=== PATIENT | male | born 1975 | race Caucasian/White ===

== ENCOUNTER → 2020-01-17 09:41 | Outpatient (BNVA) | payer OTHER, SELFPAY | PROVIDERS: Visit Provider Registered Nurse | DX: Z11.59 Encounter for screening for other viral diseases (principal) | CPT/HCPCS: 87635 ==

== ENCOUNTER → 2020-01-30 09:44 | Outpatient (BNVA) | payer OTHER, SELFPAY | PROVIDERS: Visit Provider Registered Nurse | DX: Z11.59 Encounter for screening for other viral diseases (principal) | CPT/HCPCS: 87635 ==

== ENCOUNTER → 2020-02-06 09:28 | Outpatient (BNVA) | payer OTHER, SELFPAY | PROVIDERS: Visit Provider Registered Nurse | DX: Z20.828 Contact with and (suspected) exposure to other viral communicable diseases (principal) | CPT/HCPCS: 87635 ==

== ENCOUNTER → 2020-02-13 10:14 | Outpatient (BNVA) | payer OTHER, SELFPAY | PROVIDERS: Visit Provider Registered Nurse | DX: Z20.828 Contact with and (suspected) exposure to other viral communicable diseases (principal) | CPT/HCPCS: 87635 ==

== ENCOUNTER → 2020-02-20 11:49 | Outpatient (BNVA) | payer OTHER, SELFPAY | PROVIDERS: Visit Provider Registered Nurse | DX: Z20.828 Contact with and (suspected) exposure to other viral communicable diseases (principal) | CPT/HCPCS: 87635 ==

== ENCOUNTER 2020-10-17 16:28 | Emergency (ER) | payer OTHER, SELFPAY ==
[2020-10-17 17:16] VITALS: BP 149/99; PULSE 83; RESP 18; TEMP 37.6; O2SAT 97; BMI 43.5
--- NOTE | 2020-10-17 17:31 | ED_ITS ---
HPI - Extremity Problem General: Chief complaint: Extremity Problem,Nontraumatic Stated complaint: Numbness in Fingers/Slight Chest Pressure Time Seen by Provider: 10/17/20 17:31 History of Present Illness: HPI Narrative: 44-year-old male patient comes in today with complaints of numbness and tingling in the hands and feet, lightheadedness, nausea, and some midsternal chest discomfort. Patient reports 1 week ago he did had a head injury which a heavy laptop hit him on top of the head which caused him to feel faint, and some persistent nausea for a day or 2. Today patient started having some return of his nausea and tingling in the hands and feet. Patient at first thought it was more likely due to anxiety which since having COVID-19 in the early winter has had more anxiety. Patient appears well. Patient takes no routine medication. Patient does admit he is obese. Patient does not routinely see physicians. Patient reports symptoms have alleviated since coming to the emergency room but does continue to have some tightness in his chest. Associated symptoms: Reports chest pain Review of Systems General: Reports: 10 or more systems reviewed and unremarkable except in HPI and below Card: Reports: chest pain Neuro: Reports: numbness in extremities Physical Exam Const: COMMON NORMALS: no acute distress, patient oriented x3 and alert GENERAL APPEARANCE: cooperative HENMT: COMMON NORMALS: normocephalic and Normal external nose present HEAD & SCALP: normal to inspection and normocephalic NOSE: Normal external nose present MOUTH: Normal oral and palatal mucosa present Eye: GENERAL EYE: appearance normal, both eyes and all related structures Neck/C-Spine: COMMON NORMALS: full ROM Lymph: LYMPHATIC: no lymphadenopathy noted Chest: COMMONS NORMALS: normal inspection of the chest Resp: COMMON NORMALS: normal respiratory effort EFFORT & INSPECTION: Yes able to speak in complete sentences Cardio: COMMON NORMALS: regular rate and regular rhythm RATE: regular rate RHYTHM: regular rhythm GI: COMMON NORMALS: non-tender : COMMON NORMALS: Yes no CVA tenderness BLADDER/KIDNEY EXAM: Yes no CVA tenderness Back/Pelvis: COMMON NORMALS: no CVA tenderness and thoracic and lumbar spine normal to inspection Extremity: COMMON NORMALS: normal to inspection Neuro: RICHARD COMA SCALE: document GCS findings Richard coma scale eye openin g: Spontaneous [place] coma scale verbal response: Orientated [place] coma scale motor response: Obey commands Richard coma scale total score: 15 COMMON NORMALS: patient oriented x3 and moves all extremities SENSORIUM/ORIENTATION: Yes alert OTHER: NIHS-0 Psych: COMMON NORMALS: mental status grossly normal and cooperative Skin: COMMON NORMALS: no rashes or lesions noted GENERAL SKIN EXAM: no rashes or lesions noted Course Vital Signs: Vital signs: Vital Signs Temperature 99.6 F 10/17/20 17:16 Pulse Rate 83 10/17/20 17:16 Respiratory Rate 18 10/17/20 17:16 Blood Pressure 149/99 10/17/20 17:16 Pulse Oximetry 97 10/17/20 17:16 MDM - Extremity (Nontraumatic) MDM Narrative: Medical decision making narrative: Patient came in today with several abnormal symptoms. Patient reported tingling in his extremities some chest pressure and head injury from 1 week ago. Patient reports after the head injury he has had more the symptoms. Patient does admit that he has some anxiety problems to. On exam patient appears well. Lungs are clear to auscultation. Skin is warm and dry. Abdomen soft nontender. Patient is a obese man. Patient's blood pressure was slightly elevated at 149/99. EKG showed some left ventricular hypertrophy but otherwise was normal. Differential diagnosis includes but not limited to a minor concussion, anxiety, hypertension, ACS. Laboratory values showed no elevation in troponin, CBC and CMP were unremarkable. Urinalysis was contaminated. CT of the head showed no intracranial bleeding. Patient was given 1 mg Ativan for his chest discomfort. Patient had improvement in symptoms throughout stay. Reviewed exam with patient with recommendations for treatment and follow-up. Encouraged management of blood pressure and establishing care with a primary care provider. Patient stated understanding and agreed to plan with need for follow-up. Lab Data: Labs: Lab Results 10/17/20 10/17/20 10/17/20 Range/Units 18:25 18:27 18:27 WBC 10.6 H (4.0-10.0) 10^3/ uL RBC 5.42 H (4.1-5.3) 10^6/u L Hgb 15.2 (11.7-16.6) g/dL Hct 45.5 (42.0-52.0) % MCV 83.9 (80-94) fL MCH 28.0 (28.0-34.0) pg MCHC 33.4 (30.0-36.0) g/dL RDW 12.9 (12.1-15.1) % Plt Count 376 (130-400) 10^3/c mm MPV 9.5 (7.4-10.4) fL Neut % (Auto) 70.7 % Lymph % (Auto) 19.7 % [place] % (Auto) 6.9 % Eos % (Auto) 2.1 % Baso % (Auto) 0.3 % Neut # (Auto) 7.48 (1.8-7.7) 10^3/u L Lymph # (Auto) 2.1 (0.8-4.8) 10^3/u L [place] # (Auto) 0.7 (0.2-0.9) 10^3/u L Eos # (Auto) 0.2 (0.0-0.8) 10^3/u L Baso # (Auto) 0.0 (0.0-0.1) 10^3/u L Nucleated RBC % (a uto) 0 % Nucleated RBCs # 0.0 /100WBC Sodium 140 (136-145) mmol/L Potassium 4.0 (3.5-5.1) mmol/L Chloride 103 (98-107) mmol/L Carbon Dioxide 26 (22-29) mmol/L Anion Gap 15.0 (5-19) BUN 11 (6-20) mg/dL Creatinine 1.0 (0.7-1.2) mg/dL GFR Calculation 81.6 L (90-130) mL/min Glucose 97 (65-115) mg/dL Calculated Osmolal ity 289 (285-295) mOsm/k g Calcium 8.9 (8.5-10.5) mg/dL Total Bilirubin 0.7 (0.15-1.2) mg/dL AST 21 (0-40) U/L ALT 35 (0-41) U/L Alkaline Phosphata se 70 (40-130) IU/L Creatine Kinase 167 (39-308) U/L Troponin T Gen 5 n g/L (0-15) ng/L C-Reactive Protein 10.1 H (0.0-4.9) mg/L Total Protein 7.2 (6.6-8.7) g/dL Albumin 4.5 (3.5-5.2) g/dL Globulin 2.7 (1.3-4.6) g/dL Urine Color Yellow (Yellow) Urine Appearance Sl hazy (CLEAR) Urine pH 5 (5-7) Ur Specific Gravit y 1.005 (1.005-1.030) Urine Protein Neg (Negative) Urine Glucose (UA) Norm (Normal) Urine Ketones Negative (Negative) Urine Blood Neg (Negative) Urine Nitrate Negative (Negative) Urine Bilirubin Neg (Negative) Urine Urobilinogen Norm (Negative) mg/dL Ur Leukocyte Yuridia ase 1+ H (Negative) Urine RBC None (0-2) /hpf Urine WBC 5-10 H (0-5) /hpf Ur Squamous Epith Cells 5-10 H (0-5) /hpf Amorphous Sediment Not Reportable Urine Bacteria Trace (NONE) /hpf 10/17/20 Range/Units 18:27 WBC (4.0-10.0) 10^3/ uL RBC (4.1-5.3) 10^6/u L Hgb (11.7-16.6) g/dL Hct (42.0-52.0) % MCV (80-94) fL MCH (28.0-34.0) pg MCHC (30.0-36.0) g/dL RDW (12.1-15.1) % Plt Count (130-400) 10^3/c mm MPV (7.4-10.4) fL Neut % (Auto) % Lymph % (Auto) % [place] % (Auto) % Eos % (Auto) % Baso % (Auto) % Neut # (Auto) (1.8-7.7) 10^3/u L Lymph # (Auto) (0.8-4.8) 10^3/u L [place] # (Auto) (0.2-0.9) 10^3/u L Eos # (Auto) (0.0-0.8) 10^3/u L Baso # (Auto) (0.0-0.1) 10^3/u L Nucleated RBC % (a uto) % Nucleated RBCs # /100WBC Sodium (136-145) mmol/L Potassium (3.5-5.1) mmol/L Chloride (98-107) mmol/L Carbon Dioxide (22-29) mmol/L Anion Gap (5-19) BUN (6-20) mg/dL Creatinine (0.7-1.2) mg/dL GFR Calculation (90-130) mL/min Glucose (65-115) mg/dL Calculated Osmolal ity (285-295) mOsm/k g Calcium (8.5-10.5) mg/dL Total Bilirubin (0.15-1.2) mg/dL AST (0-40) U/L ALT (0-41) U/L Alkaline Phosphata se (40-130) IU/L Creatine Kinase (39-308) U/L Troponin T Gen 5 n g/L 6 (0-15) ng/L C-Reactive Protein (0.0-4.9) mg/L Total Protein (6.6-8.7) g/dL Albumin (3.5-5.2) g/dL Globulin (1.3-4.6) g/dL Urine Color (Yellow) Urine Appearance (CLEAR) Urine pH (5-7) Ur Specific Gravit y (1.005-1.030) Urine Protein (Negative) Urine Glucose (UA) (Normal) Urine Ketones (Negative) Urine Blood (Negative) Urine Nitrate (Negative) Urine Bilirubin (Negative) Urine Urobilinogen (Negative) mg/dL Ur Leukocyte Yuridia ase (Negative) Urine RBC (0-2) /hpf Urine WBC (0-5) /hpf Ur Squamous Epith Cells (0-5) /hpf Amorphous Sediment Urine Bacteria (NONE) /hpf EKG Data^: EKG 1: Attestation: I personally reviewed and interpreted this EKG as follows: (1800, EKG shows a sinus rhythm with a regular rate at 83 bpm, no ectopy or ST elevation is noted, some left ventricular hypertrophy is noted. No prior exam is available for comparison at this time.) Discharge Plan Discharge Patient Disposition: Home Clinical Impression: Anxiety, Elevated blood pressure reading Minor head injury without loss of consciousness Qualifiers: Encounter type: initial encounter Qualified Code(s): S09.90XA - Unspecified injury of head, initial encounter Condition: Stable Prescriptions: No Action No Known Home Medications RF: 0 Discharge Orders: Discharge ED (Routine); Ordered 10/17/20 Ordered By: Troy Kent Discharge Diet: Usual diet Discharge Activity: Increase activity as tolerated Patient Instructions: DASH Eating Plan (ED), Hypertension (ED), Opioid Safety Activity Restrictions/Additional Instructions: Healthy diet and exercise. Drink plenty of water. Follow-up with primary care for recheck on blood pressure. Consider the DASH diet plan for assistance with lowering your blood pressure. Return to the emergency department for new concerns or worsening symptoms. Coding Level of Care Code ED Insole Beveler for Wisam Howe Exam Comprehensive
--- NOTE | 2020-10-17 17:32 | ECG_ITS ---
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 Measurements Intervals [place] Rate: 83 P: 6 SD: 120 QRS: -31 QRSD: 97 T: 29 QT: 351 QTc: 414 Interpretive Statements SINUS RHYTHM MARKED LEFT AXIS DEVIATION [QRS AXIS < -30] PATTERN CONSISTENT WITH PULMONARY DISEASE MINIMAL VOLTAGE CRITERIA FOR LVH, CONSIDER NORMAL VARIANT [MEETS CRITERIA IN ONE OF: R(aVL), S(V1), R(V5), R(V5/V6)+S(V1)] No previous ECG available for comparison Electronically Signed On 10-18-2020 14:53:28 CDT by Keira Ortiz M.D. [email or web address]
--- NOTE | 2020-10-17 18:09 | CTR_ITS ---
PROCEDURE INFORMATION: Exam: CT Head Without Contrast Exam date and time: 10/17/2020 6:09 PM Age: 44 years old Clinical indication: Injury or trauma; Other: Dropped laptop on head; Blunt trauma (contusions or hematomas); Injury details: Dropped 5lb laptop on head x 1 week ago. Has been feeling foggy, dizzy, and tingling in fingers. ; Prior surgery; Surgery type: Ears, nose, throat; Additional info: Head injury one week, persistent dizziness/nausea TECHNIQUE: Imaging protocol: Computed tomography of the head without contrast. Radiation optimization: All CT scans at this facility use at least one of these dose optimization techniques: automated exposure control; mA and/or kV adjustment per patient size (includes targeted exams where dose is matched to clinical indication); or iterative reconstruction. COMPARISON: No relevant prior studies available. RADIATION DOSE METRICS: Total DLP (mGy-cm): 1016.57 FINDINGS: Brain: Normal. No hemorrhage. Unremarkable white matter. No mass effect. Cerebral ventricles: No ventriculomegaly. Paranasal sinuses: Visualized sinuses are unremarkable. No fluid levels. Mastoid air cells: Visualized mastoid air cells are well aerated. Bones/joints: Unremarkable. No acute fracture. Soft tissues: Unremarkable. CT/CT head wo con* [id number] IMPRESSION: No acute intracranial abnormality. Radiation Dose CTDIVOL = (mGy): DLP = 1016.57 (mGy-cm)
[2020-10-17 18:31] LABS: Basophils % 0.3 %; Eosinophils # 0.2 10^3/uL (0.0-0.8); Eosinophils % 2.1 %; Hematocrit 45.5 % (42.0-52.0); Hemoglobin 15.2 g/dL (11.7-16.6); Lymphocytes # 2.1 10^3/uL (0.8-4.8); Lymphocytes % 19.7 %; Mean Corpuscular HGB Conc 33.4 g/dL (30.0-36.0); Mean Corpuscular Volume 83.9 fL (80-94); Mean Platelet Volume 9.5 fL (7.4-10.4); Monocytes # 0.7 10^3/uL (0.2-0.9); Monocytes % 6.9 %; Neutrophils # 7.48 10^3/uL (1.8-7.7); Neutrophils % 70.7 %; Nucleated Red Blood Cells % 0 %; Platelet Count 376 10^3/cmm (130-400); Red Blood Count 5.42 10^6/uL (4.1-5.3); Red Cell Distribution Width 12.9 % (12.1-15.1); White Blood Count 10.6 10^3/uL (4.0-10.0)
[2020-10-17] MEDS: LORazepam 1 mg Tablet PO (18:31)
[2020-10-17 18:49] LABS: Troponin T (5th) Once 6 ng/L (0-15)
[2020-10-17 18:50] LABS: Alanine Aminotransferase 35 U/L (0-41); Albumin Level 4.5 g/dL (3.5-5.2); Alkaline Phosphatase 70 IU/L (40-130); Aspartate Amino Transferase 21 U/L (0-40); Blood Urea Nitrogen 11 mg/dL (6-20); C Reactive Protein 10.1 mg/L (0.0-4.9); Calcium 8.9 mg/dL (8.5-10.5); Carbon Dioxide 26 mmol/L (22-29); Chloride 103 mmol/L (98-107); Creatine Phosphokinase 167 U/L (39-308); Globulin 2.7 g/dL (1.3-4.6); Glomerular Filtration Rate 81.6 mL/min (90-130); Glucose 97 mg/dL (65-115); Osmolality Calculated 289 mOsm/kg (285-295); Sodium 140 mmol/L (136-145); Total Bilirubin 0.7 mg/dL (0.15-1.2); Total Protein 7.2 g/dL (6.6-8.7)
[2020-10-17 19:02] LABS: Add Urine Microscopic? YES; Bilirubin Urine Neg (Negative); Blood Urine Neg (Negative); Glucose Urine UA Norm (Normal); Ketones Urine Negative (Negative); Leukocyte Esterase Urine 1+ (Negative); Nitrate Urine Negative (Negative); Protein Urine Neg (Negative); Specific Gravity, Urine 1.005 (1.005-1.030); Urine Appearance SL Hazy (CLEAR); Urine Color Yellow (Yellow); Urobilinogen Urine Norm (Negative); pH Urine 5 (5-7)
[2020-10-17 19:05] LABS: Add Urine Culture? No; Bacteria Urine TRACE /hpf
[2020-10-17 20:00] VITALS: BP 136/86; PULSE 69; RESP 18; O2SAT 96
== END 2020-10-17 20:27 | disposition home or self-care (01) ==
PROVIDERS: Emergency Provider Nurse Practitioner Family
DX: S09.90XA Unspecified injury of head, initial encounter (principal); F41.9 Anxiety disorder, unspecified; R03.0 Elevated blood-pressure reading, without diagnosis of hypertension; E66.9 Obesity, unspecified; Z68.41 Body mass index [BMI] 40.0-44.9, adult; W22.8XXA Striking against or struck by other objects, initial encounter
CPT/HCPCS: 70450; 80053; 81001; 82550; 84484; 85025; 86140; 93005; 99283

== ENCOUNTER 2021-06-11 15:33 | Emergency (ER) | payer OTHER, SELFPAY ==
[2021-06-11 15:47] VITALS: BP 153/96; PULSE 81; RESP 16; TEMP 37.2; O2SAT 98; BMI 44.3
--- NOTE | 2021-06-11 17:35 | USR_ITS ---
PROCEDURE INFORMATION: Exam: US Abdomen, Limited; Right Upper Quadrant Exam date and time: 06/11/2021 5:35 PM Age: 45 years old Clinical indication: Nausea and other: Diarrhea; Abdominal pain; Acute; Additional info: Eval for gallbladder pathologies and right kidney hydro, spoke with Dr. Mumtaz oliveira to scan at 1830 TECHNIQUE: Imaging protocol: US abdomen. Real time ultrasound with image documentation. Limited exam focused on the right upper quadrant. COMPARISON: No relevant prior studies available. FINDINGS: Liver: 18 cm sagittal liver. Gallbladder: 2 mm gallbladder wall which is normal. Nonshadowing echogenic material in the neck the gallbladder suggesting possible sludge. Common bile duct: Normal. No stones. No dilation. Pancreas: Visualized pancreas is unremarkable. Right kidney: No right hydronephrosis. 13.5 x 5.6 x 5.8 cm right kidney. Inferior vena cava: 1.8 cm IVC. US/US abdomen limited [id number] IMPRESSION: 1. No right hydronephrosis. 2. Nonshadowing echogenic material in the neck the gallbladder suggesting possible sludge. 3. Examination is limited secondary to body habitus.
--- NOTE | 2021-06-11 17:37 | W.ED.GENADLT ---
HPI - General Adult General: Chief complaint: Nausea/Vomiting/Diarrhea Stated complaint: N/V Time Seen by Provider: 06/11/21 17:17 History of Present Illness: Patient is a 45-year-old male with no known past medical history presents emergency room with complaints of right upper quadrant abdominal pain x1 hour in the setting of diarrhea and one episode of vomiting. Patient tells me that he has had diarrhea since 3 days ago. Patient says that the nail he has had liquid stool. Patient around 12:30 PM ate some food and suddenly began developing significant right upper quadrant cramping lasting for about an hour. Patient had one episode of vomiting today. Patient denies any melena hematochezia, prior history of renal colic, prior abdominal surgery, or other complaints including chest pain, shortness breath, palpitation, fever or chills, cough complaints or new penile discharge. Onset: abd pain since 12:30pm lasting for 1 hr, diarrhea x 2 days Duration:1 hr of abd pain, diarrhea x 2 days Location:home Severity:moderate Associated symptoms: Reports nausea and vomiting; Deny chest pain, dyspnea, rash or palpitations Review of Systems Const: Denies: fever(s) or chills Eyes: Denies: change in vision ENMT: Denies: mouth pain Card: Denies: chest pain or palpitations Resp: Denies: dyspnea or non-productive cough GI: Reports: abdominal pain, nausea, vomiting and diarrhea : Denies: dysuria Musc: Denies: extremity pain Skin/Breast: Denies: rash or new lesions Neuro: Denies: weakness in extremities Psych: Reports: other (Normal mood) Henry/Lymph: Denies: easy bruising [facility] ED PFSH: Medical History (Updated 06/11/21 @ 17:44 by Edis Pandya MD) No pertinent past medical history Social History (Updated 06/11/21 @ 17:43 by Edis Pandya MD) Smoking and tobacco status: never smoked Alcohol intake: never Substance/Drug Use: never Physical Exam Const: COMMON NORMALS: alert HENMT: COMMON NORMALS: atraumatic HEAD & SCALP: atraumatic MOUTH: moist mucous membranes not abnormal Eye: COMMON NORMALS: EOMs intact bilaterally and conjunctivae normal CONJUNCTIVA: Yes conjunctivae normal Neck/C-Spine: COMMON NORMALS: full ROM and supple Resp: COMMON NORMALS: normal respiratory effort and clear to auscultation bilaterally AUSCULTATION: clear to auscultation bilaterally Cardio: COMMON NORMALS: regular rate RATE: regular rate GI: COMMON NORMALS: Soft to palpation and non-tender PALPATION: Yes Soft to palpation OTHER: No focal TTP. NO guarding rebound, guarding, rigidity. No CVA tenderness to percussion. Neg Souza/Neg McBurney's point tenderness, no suprabupic tenderness to palpation. Extremity: COMMON NORMALS: full ROM Neuro: SENSORIUM/ORIENTATION: Yes alert MOTOR EXAM: No Abnormal motor strength present and Other motor observations present (no focal motor deficits) Psych: COMMON NORMALS: speech normal SPEECH: Yes normal speech MOOD & AFFECT: Yes euthymic mood Course Vital Signs: Vital signs: Vital Signs Temperature 99 F 06/11/21 15:47 Pulse Rate 81 06/11/21 19:39 Respiratory Rate 17 06/11/21 20:22 Blood Pressure 156/85 06/11/21 19:39 Pulse Oximetry 95 06/11/21 20:22 MDM - General Adult Medical Decision Making 45-year-old male with no significant past medical history presents emergency room with diarrhea, right upper quadrant dull pain x1 hour and 1 episode of emesis today. On exam, patient is no focal abdominal tenderness palpation without guarding or rebound tenderness. Work-up today showed count of 8.6. Rest of lab within normal limit. Patient had episode of vomiting while in the emergency room with colicky abdominal pain. CT of the pelvis showed 1 mm stone at the UVJ. Patient also found to have 1.6 mm right posterior lateral urine bladder hitch diverticulum and a 2.7 urinary bladder diverticulum of the right superior urinary bladder. Incidental findings of diverticula discussed extensively with patient. Patient received a copy of the CT report with the documented findings. Patient is instructed to follow up urgently with specialists. UA showed 10-15 WBC with trace leukocyte estase. Given findings of bladder diverticulum, will treat with ABX for UTI just in case. I have given patient follow up with our rn case manager to be seen by our outpatient Urology for evaluation of R sided hydro with bladder hutch diverticulum and urinary bladder diverticulum. Patient aware of a call from our rn case manager to schedule for appointment(s) and verbalizes understanding of the importance of following up. Rx tylenol PRN abd pain, and zofran PRN nausea/vomiting, percocet PRN severe pain, and cephalexin for UTI prophylaxis Disposition: Discharge. Patient counseled regarding diagnostic impression, treatment plan. Patient given ED strict return precautions to return for continuation, worsening, or development of new symptoms. Instructed to f/u w/ Dr. Gray regarding symptoms today. Patient verbalized understanding. Lab Data : 06/11/21 17:30 06/11/21 17:30 Radiology Impressions Abdomen Ultrasound 06/11/21 17:35 IMPRESSION: 1. No right hydronephrosis. 2. Nonshadowing echogenic material in the neck the gallbladder suggesting possible sludge. 3. Examination is limited secondary to body habitus. Abdomen/Pelvis CT 06/11/21 19:58 IMPRESSION: 1. 1.6 cm right posterolateral urinary bladder Hutch diverticulum. 2. 1 mm right UVJ stone with mild right hydronephrosis. 3. 2.7 cm urinary bladder diverticulum along the right superior urinary bladder. 4. Uniform urinary bladder wall thickening consistent with partially contracted gallbladder versus cystitis versus chronic outlet obstruction. Laboratory Results WBC 8.6 10^3/uL (4.0-10.0) 06/11/21 17:30 RBC 5.56 10^6/uL (4.1-5.3) H 06/11/21 17:30 Hgb 15.6 g/dL (11.7-16.6) 06/11/21 17:30 Hct 47.1 % (42.0-52.0) 06/11/21 17:30 MCV 84.7 fl (80-94) 06/11/21 17:30 MCH 28.1 pg (28.0-34.0) 06/11/21 17:30 MCHC 33.1 g/dL (30.0-36.0) 06/11/21 17:30 RDW 13.2 % (12.1-15.1) 06/11/21 17:30 Plt Count 351 10^3/cmm (130-400) 06/11/21 17:30 MPV 9.5 fL (7.4-10.4) 06/11/21 17:30 Neut % (Auto) 75.0 % 06/11/21 17:30 Lymph % (Auto) 14.0 % 06/11/21 17:30 [place] % (Auto) 8.4 % 06/11/21 17:30 Eos % (Auto) 2.2 % 06/11/21 17:30 Baso % (Auto) 0.2 % 06/11/21 17:30 Neut # (Auto) 6.40 10^3/uL (1.8-7.7) 06/11/21 17:30 Lymph # (Auto) 1.2 10^3/uL (0.8-4.8) 06/11/21 17:30 [place] # (Auto) 0.7 10^3/uL (0.2-0.9) 06/11/21 17:30 Eos # (Auto) 0.2 10^3/uL (0.0-0.8) 06/11/21 17:30 Baso # (Auto) 0.0 10^3/uL (0.0-0.1) 06/11/21 17:30 Nucleated RBC % (auto) 0 % 06/11/21 17:30 Nucleated RBCs # 0.0 /100WBC 06/11/21 17:30 Sodium 138 mmol/L (136-145) 06/11/21 17:30 Potassium 4.1 mmol/L (3.5-5.1) 06/11/21 17:30 Chloride 105 mmol/L (98-107) 06/11/21 17:30 Carbon Dioxide 22 mmol/L (22-29) 06/11/21 17:30 Anion Gap 15.1 (5-19) 06/11/21 17:30 BUN 15 mg/dL (6-20) 06/11/21 17:30 Creatinine 1.0 mg/dL (0.7-1.2) 06/11/21 17:30 GFR Calculation 81.2 mL/min (90-130) L 06/11/21 17:30 Glucose 111 mg/dL (65-115) 06/11/21 17:30 Calculated Osmolality 288 mOsm/kg (285-295) 06/11/21 17:30 Lactate 1.2 mmol/L (0.5-2.2) 06/11/21 17:53 Calcium 9.0 mg/dL (8.5-10.5) 06/11/21 17:30 Total Bilirubin 0.5 mg/dL (0.15-1.2) 06/11/21 17:30 AST 25 U/L (0-40) 06/11/21 17:30 ALT 43 U/L (0-41) H 06/11/21 17:30 Alkaline Phosphatase 72 IU/L (40-130) 06/11/21 17:30 Total Protein 8.0 g/dL (6.6-8.7) 06/11/21 17:30 Albumin 4.4 g/dL (3.5-5.2) 06/11/21 17:30 Globulin 3.6 g/dL (1.3-4.6) 06/11/21 17:30 Lipase 33 U/L (13-60) 06/11/21 17:30 Urine Color Yellow (Yellow) 06/11/21 20:20 Urine Appearance Clear (CLEAR) 06/11/21 20:20 Urine pH 5 (5-7) 06/11/21 20:20 Ur Specific [place] 1.030 (1.005-1.030) 06/11/21 20:20 Urine Protein 1+ (Negative) H 06/11/21 20:20 Urine Glucose (UA) Norm (Normal) 06/11/21 20:20 Urine Ketones Negative (Negative) 06/11/21 20:20 Urine Blood 3+ (Negative) H 06/11/21 20:20 Urine Nitrate Negative (Negative) 06/11/21 20:20 Urine Bilirubin 1+ (Negative) H 06/11/21 20:20 Urine Urobilinogen Norm mg/dL (Negative) 06/11/21 20:20 Ur Leukocyte Esterase Trace (Negative) H 06/11/21 20:20 Urine RBC 0-4 /hpf (0-2) H 06/11/21 20:20 Urine WBC 10-15 /hpf (0-5) H 06/11/21 20:20 Ur Squamous Epith Cells 0-4 /hpf (0-5) H 06/11/21 20:20 Amorphous Sediment 1+ /hpf 06/11/21 20:20 Urine Bacteria Trace /hpf (NONE) 06/11/21 20:20 Urine Mucus 1+ /hpf 06/11/21 20:20 Imaging Data Other Imaging: Radiologist's impression: [address] [address] [address] Scan Report Signed Patient: Sae Singh Unit #: [id number] : 1975 Age/Sex: 45 / M ADM Date: 06/11/21 Loc: ER Room/Bed: Attending Dr: Ordering Provider/Ordering MD: Edis Pandya MD Date of Service: 06/11/21 Procedure(s): CT abdomen pelvis w con* [id number] Accession Number(s): [id number] Report Number: [id number] PROCEDURE INFORMATION: Exam: CT Abdomen And Pelvis With Contrast Exam date and time: 06/11/2021 7:58 PM Age: 45 years old Clinical indication: Abdominal pain; Generalized; Patient HX: Rlq abdomen pain x3 days radiating across to llq; Additional info: Abd pain TECHNIQUE: Imaging protocol: Computed tomography of the abdomen and pelvis with contrast. Radiation optimization: All CT scans at this facility use at least one of these dose optimization techniques: automated exposure control; mA and/or kV adjustment per patient size (includes targeted exams where dose is matched to clinical indication); or iterative reconstruction. Contrast material: OMNI 300; Contrast volume: 95 ml; Contrast route: INTRAVENOUS (IV);? COMPARISON: US abdomen limited [id number] 06/11/2021 6:47 PM RADIATION DOSE METRICS: Total DLP (mGy-cm): FINDINGS: Liver: Normal. No mass. Gallbladder and bile ducts: Uniform urinary bladder wall thickening consistent with partially contracted gallbladder versus cystitis versus chronic outlet obstruction. Pancreas: Normal. No ductal dilation. Spleen: Normal. No splenomegaly. Adrenal glands: Normal. No mass. Kidneys and ureters: 1 mm right UVJ stone with mild right hydronephrosis. Stomach and bowel: Unremarkable. No obstruction. No mucosal thickening. Appendix: No evidence of appendicitis. Intraperitoneal space: Unremarkable. No free air. No significant fluid collection. Vasculature: Unremarkable. No abdominal aortic aneurysm. Lymph nodes: Unremarkable. No enlarged lymph nodes. Urinary bladder: 1.6 cm right posterolateral urinary bladder Hutch diverticulum. 2.7 cm urinary bladder diverticulum along the right superior urinary bladder. Reproductive: Unremarkable as visualized. Bones/joints: Unremarkable. No acute fracture. Soft tissues: Unremarkable. CT/CT abdomen pelvis w con* [id number] IMPRESSION: 1. 1.6 cm right posterolateral urinary bladder Hutch diverticulum. 2. 1 mm right UVJ stone with mild right hydronephrosis. 3. 2.7 cm urinary bladder diverticulum along the right superior urinary bladder. 4. Uniform urinary bladder wall thickening consistent with partially contracted gallbladder versus cystitis versus chronic outlet obstruction. ? Dictated By: Ron Braswell MD Signed By: Ron Braswell MD Signed Date/Time: 06/11/212049 DD/ 57 Discharge Plan Discharge Patient Disposition: Home Clinical Impression: Abdominal pain, Nausea & vomiting, Diarrhea Condition: Stable Prescriptions: New acetaminophen 500 mg tablet 500 mg PO Q6H PRN (Reason: pain) 5 Days Qty: 20 0RF Zofran 4 mg tablet 4 mg PO TID PRN (Reason: nausea and vomiting) 4 Days Qty: 12 0RF Pepcid 20 mg tablet 20 mg PO BID PRN (Reason: abdominal pain) 10 Days Qty: 20 0RF Maalox Advanced 1,000-60 mg tablet,chewable 1 tab PO TID PRN (Reason: abdominal pain) 7 Days Qty: 21 0RF Percocet 5-325 mg tablet 1 tab PO Q8H PRN (Reason: pain) Qty: 5 0RF cephalexin 500 mg capsule 500 mg PO BID 7 Days Qty: 14 0RF Discharge Orders: Discharge ED (Routine); Ordered 06/11/21 Ordered By: Edis Pandya Referrals: Claudy Ruff [Primary Care Provider] - Discharge Diet: Advance as tolerated Discharge Activity: Increase activity as tolerated Patient Instructions: Acute Nausea and Vomiting (ED), Acute Diarrhea (ED), Abdominal Pain (ED) Activity Restrictions/Additional Instructions: Please come back if you have any worsening abdominal pain, fever or chills, nausea or vomiting, diarrhea, blood in the stool, inability hold down liquid or solids, or any new concerning complaints. Our rn case manager will have you follow-up with Dr. Gray in the next few days. You would be expected to have a phone call with our rn case manager who will put you on the schedule. You can expect a call from us in the next 2-3 days. If you don't hear from us, call us back in the emergency room at [phone]. Coding Level of Care Code ED Child Care Director for Chg Fwd Exam Comprehensive
[2021-06-11 17:44] LABS: Basophils % 0.2 %; Eosinophils # 0.2 10^3/uL (0.0-0.8); Eosinophils % 2.2 %; Hematocrit 47.1 % (42.0-52.0); Hemoglobin 15.6 g/dL (11.7-16.6); Lymphocytes # 1.2 10^3/uL (0.8-4.8); Mean Corpuscular HGB Conc 33.1 g/dL (30.0-36.0); Mean Corpuscular Hemoglobin 28.1 pg (28.0-34.0); Mean Corpuscular Volume 84.7 fl (80-94); Mean Platelet Volume 9.5 fL (7.4-10.4); Monocytes # 0.7 10^3/uL (0.2-0.9); Monocytes % 8.4 %; Nucleated Red Blood Cells % 0 %; Platelet Count 351 10^3/cmm (130-400); Red Blood Count 5.56 10^6/uL (4.1-5.3); Red Cell Distribution Width 13.2 % (12.1-15.1); White Blood Count 8.6 10^3/uL (4.0-10.0)
[2021-06-11 17:52] VITALS: BP 122/74; PULSE 75; RESP 16; O2SAT 92
[2021-06-11] MEDS: famotidine 20 mg/2 mL INJ IVP (17:52)
[2021-06-11] MEDS: lidocaine 2% viscous 15 ML, aluminum-mag hydrox-simethicon 30 ML, sucralfate oral liq 1 GM PO (17:53)
[2021-06-11] MEDS: sodium chloride 0.9% 1,000 ML 999 ML IV (17:55)
[2021-06-11 18:05] LABS: Alanine Aminotransferase 43 U/L (0-41); Albumin Level 4.4 g/dL (3.5-5.2); Alkaline Phosphatase 72 IU/L (40-130); Anion Gap 15.1 (5-19); Aspartate Amino Transferase 25 U/L (0-40); Blood Urea Nitrogen 15 mg/dL (6-20); Carbon Dioxide 22 mmol/L (22-29); Chloride 105 mmol/L (98-107); Globulin 3.6 g/dL (1.3-4.6); Glomerular Filtration Rate 81.2 mL/min (90-130); Glucose 111 mg/dL (65-115); Lipase 33 U/L (13-60); Osmolality Calculated 288 mOsm/kg (285-295); Potassium 4.1 mmol/L (3.5-5.1); Sodium 138 mmol/L (136-145); Total Bilirubin 0.5 mg/dL (0.15-1.2)
[2021-06-11 18:23] LABS: Lactate (Lactic Acid level) 1.2 mmol/L (0.5-2.2)
[2021-06-11 19:39] VITALS: BP 156/85; PULSE 81; RESP 19; O2SAT 95
--- NOTE | 2021-06-11 19:58 | CTR_ITS ---
PROCEDURE INFORMATION: Exam: CT Abdomen And Pelvis With Contrast Exam date and time: 06/11/2021 7:58 PM Age: 45 years old Clinical indication: Abdominal pain; Generalized; Patient HX: Rlq abdomen pain x3 days radiating across to llq; Additional info: Abd pain TECHNIQUE: Imaging protocol: Computed tomography of the abdomen and pelvis with contrast. Radiation optimization: All CT scans at this facility use at least one of these dose optimization techniques: automated exposure control; mA and/or kV adjustment per patient size (includes targeted exams where dose is matched to clinical indication); or iterative reconstruction. Contrast material: OMNI 300; Contrast volume: 95 ml; Contrast route: INTRAVENOUS (IV); COMPARISON: US abdomen limited [id number] 06/11/2021 6:47 PM RADIATION DOSE METRICS: Total DLP (mGy-cm): FINDINGS: Liver: Normal. No mass. Gallbladder and bile ducts: Uniform urinary bladder wall thickening consistent with partially contracted gallbladder versus cystitis versus chronic outlet obstruction. Pancreas: Normal. No ductal dilation. Spleen: Normal. No splenomegaly. Adrenal glands: Normal. No mass. Kidneys and ureters: 1 mm right UVJ stone with mild right hydronephrosis. Stomach and bowel: Unremarkable. No obstruction. No mucosal thickening. Appendix: No evidence of appendicitis. Intraperitoneal space: Unremarkable. No free air. No significant fluid collection. Vasculature: Unremarkable. No abdominal aortic aneurysm. Lymph nodes: Unremarkable. No enlarged lymph nodes. Urinary bladder: 1.6 cm right posterolateral urinary bladder Hutch diverticulum. 2.7 cm urinary bladder diverticulum along the right superior urinary bladder. Reproductive: Unremarkable as visualized. Bones/joints: Unremarkable. No acute fracture. Soft tissues: Unremarkable. CT/CT abdomen pelvis w con* [id number] IMPRESSION: 1. 1.6 cm right posterolateral urinary bladder Hutch diverticulum. 2. 1 mm right UVJ stone with mild right hydronephrosis. 3. 2.7 cm urinary bladder diverticulum along the right superior urinary bladder. 4. Uniform urinary bladder wall thickening consistent with partially contracted gallbladder versus cystitis versus chronic outlet obstruction.
[2021-06-11 20:22] VITALS: RESP 17; O2SAT 95
[2021-06-11] MEDS: morphine 4 mg/mL SDV 1 mL 2 MG IVP (20:22)
[2021-06-11] MEDS: ondansetron 2 mg/ML SDV 2 mL 4 MG IVP (20:23)
[2021-06-11] MEDS: iohexol 300 mg/mL 100 mL Btl IV (20:48)
[2021-06-11 21:19] LABS: Add Urine Culture? No; Add Urine Microscopic? YES; Amorphous Sediment Urine 1+ /hpf; Bacteria Urine TRACE /hpf; Bilirubin Urine 1+ (Negative); Blood Urine 3+ (Negative); Glucose Urine UA Norm (Normal); Ketones Urine Negative (Negative); Leukocyte Esterase Urine Trace (Negative); Mucus Urine 1+ /hpf; Nitrate Urine Negative (Negative); Protein Urine 1+ (Negative); RBC Urine 0-4 /hpf (0-2); Squamous Epithelial Cell Urine 0-4 /hpf (0-5); Urine Appearance Clear (CLEAR); Urine Color Yellow (Yellow); Urobilinogen Urine Norm (Negative); pH Urine 5 (5-7)
[2021-06-11] MEDS: ketorolac 30 mg/mL INJ IVP (22:40)
[2021-06-11 22:53] VITALS: BP 135/92; PULSE 88; RESP 17; O2SAT 93
--- NOTE | 2021-06-12 11:14 | DCPLANNER ---
Addendum entered by Celia Edwards 06/20/21 12:39: Patient had a follow up appointment scheduled for 06.16.[address] Gray - patient did attend appointment. Addendum entered by Celia Edwards 06/16/21 07:59: Patient has a follow up appointment scheduled for Wednesday, June 16, 2021 at 4:[address] Gray. Clinic will call patient with appointment information. Addendum entered by Celia Edwards 06/12/21 13:52: the ortho note was made on wrong patient. Addendum entered by Celia Edwards 06/12/21 11:20: Ortho clinic called cyanide case hardener, stating that patient wants to followup with someone in [facility], does not want to come to [place]. manager web called patient and explained that there is not a orthopedic surgeon in [facility]. Patient stated to cancel the referral because he was not going to go to [place]. manager web called ortho, spoke with Katharina, and cancelled the referral. Original Note: manager web had message to schedule a follow up appointment for patient with Dr. Gray. manager web emailed patients information to Ozzy Seay in the office of Dr. Gray. Patients information will be printed and reviewed. Clinic will call patient with appointment information.
== END 2021-06-11 22:54 | disposition home or self-care (01) ==
PROVIDERS: Nurse Practitioner Family; Emergency Provider Emergency Medicine; PCP Family Medicine
DX: R10.9 Unspecified abdominal pain (principal); R11.2 Nausea with vomiting, unspecified; R19.7 Diarrhea, unspecified
CPT/HCPCS: 74177; 76705; 80053; 81001; 81003; 83605; 83690; 85025; 96361; 96374; 96375; 99284; J1885; J2270; J2405; J3490; J7030; Q9967

== ENCOUNTER 2023-05-15 00:08 | Emergency (ER) | payer OTHER, SELFPAY ==
[2023-05-15 00:23] VITALS: BP 160/104; PULSE 69; RESP 20; TEMP 36.6; O2SAT 96; BMI 44.3
--- NOTE | 2023-05-15 00:34 | CTR_ITS ---
PROCEDURE INFORMATION: Exam: CT Abdomen And Pelvis Without Contrast Exam date and time: 05/15/2023 12:39 AM Age: 47 years old Clinical indication: Abdominal pain; Localized; Right; Patient HX: HX of kidney stones; Additional info: Right flank pain TECHNIQUE: Imaging protocol: Computed tomography of the abdomen and pelvis without contrast. Radiation optimization: All CT scans at this facility use at least one of these dose optimization techniques: automated exposure control; mA and/or kV adjustment per patient size (includes targeted exams where dose is matched to clinical indication); or iterative reconstruction. COMPARISON: CT abdomen pelvis w con* [id number] 06/11/2021 8:33 PM RADIATION DOSE METRICS: Total DLP (mGy-cm): 1447 FINDINGS: Liver: Normal. No mass. Gallbladder and bile ducts: Normal. No calcified stones. No ductal dilation. Pancreas: Normal. No ductal dilation. Spleen: Normal. No splenomegaly. Adrenal glands: Normal. No mass. Kidneys and ureters: Normal. No hydronephrosis. Stomach and bowel: Unremarkable. No obstruction. No mucosal thickening. Appendix: No evidence of appendicitis. Intraperitoneal space: Unremarkable. No free air. No significant fluid collection. Vasculature: Unremarkable. No abdominal aortic aneurysm. Lymph nodes: Unremarkable. No enlarged lymph nodes. Urinary bladder: Unremarkable as visualized. Reproductive: Unremarkable as visualized. Bones/joints: Unremarkable. No acute fracture. Soft tissues: Unremarkable. CT/CT kidney stone [id number] IMPRESSION: 1. No bowel obstruction or inflammatory process associated with the bowel. 2. No free air or significant free fluid in the abdomen or pelvis. 3. The appendix images normally. 4. No hydronephrosis or renal calculus. No stone in the bladder.
[2023-05-15 00:45] LABS: Basophils % 0.2 %; Eosinophils # 0.3 10^3/uL (0.0-0.8); Eosinophils % 2.6 %; Hematocrit 43.8 % (37-53); Lymphocytes # 2.9 10^3/uL (0.8-4.8); Lymphocytes % 25.2 %; Mean Corpuscular HGB Conc 32.9 g/dL (30-55); Mean Corpuscular Hemoglobin 28.3 pg (27-33); Mean Corpuscular Volume 86.1 fl (82-101); Mean Platelet Volume 9.5 fL (7.4-10.4); Monocytes # 0.9 10^3/uL (0.2-0.9); Neutrophils # 7.28 10^3/uL (1.8-7.7); Neutrophils % 63.7 %; Nucleated Red Blood Cells % 0 %; Platelet Count 348 10^3/cmm (157-399); Red Blood Count 5.09 10^6/uL (3.85-5.65); Red Cell Distribution Width 13.4 % (12.1-15.1); White Blood Count 11.42 10^3/uL (3.29-11.43)
[2023-05-15 00:56] LABS: Alanine Aminotransferase 35 U/L (0-41); Alkaline Phosphatase 77 U/L (40-130); Anion Gap 13.1 (5-19); Aspartate Amino Transferase 19 U/L (0-40); Blood Urea Nitrogen 16 mg/dL (6-20); Calcium 8.6 mg/dL (8.5-10.5); Carbon Dioxide 27 mmol/L (22-29); Chloride 106 mmol/L (98-107); Globulin 2.7 g/dL (1.3-4.6); Glomerular Filtration Rate 72.1 mL/min (90-130); Glucose 124 mg/dL (65-115); Osmolality Calculated 297 mOsm/kg (285-295); Potassium 4.1 mmol/L (3.5-5.1); Sodium 142 mmol/L (136-145); Total Bilirubin 0.3 mg/dL (0.15-1.2); Total Protein 6.7 g/dL (6.6-8.7)
[2023-05-15] MEDS: ondansetron 2 mg/ML SDV 2 mL 4 MG IVP (00:56)
[2023-05-15] MEDS: ketorolac 30 mg/mL INJ IVP (00:56)
[2023-05-15] MEDS: sodium chloride 0.9% 1,000 ML 999 ML IV (00:57)
[2023-05-15 00:58] VITALS: BP 169/100; PULSE 62; RESP 16; O2SAT 96
--- NOTE | 2023-05-15 01:34 | USR_ITS ---
PROCEDURE INFORMATION: Exam: US Abdomen, Limited; Right Upper Quadrant Exam date and time: 05/15/2023 2:56 AM Age: 47 years old Clinical indication: Abdominal pain; Acute; Additional info: Ruq abd pain TECHNIQUE: Imaging protocol: Real time ultrasound of the abdomen with image documentation. Limited exam focused on the right upper quadrant. COMPARISON: US abdomen limited [id number] 06/11/2021 6:47 PM FINDINGS: Liver: There is diffuse loss of portal triad fat. Is diffuse increased echogenicity liver. Gallbladder: Normal. No gallstones. There is no gallbladder wall thickening. Biliary ducts: Normal. No stones. No dilation. Pancreas: Not well assessed due overlying bowel gas. Right kidney: Normal. No mass. No hydronephrosis. US/US gall bladder [id number] IMPRESSION: 1. Diffuse hepatic steatosis. Correlate with laboratory findings of liver dysfunction. 2. Pancreas is not well visualized.
[2023-05-15 02:00] LABS: Lipase 48 U/L (13-60)
--- NOTE | 2023-05-15 03:23 | W.ED.ABDPA2 ---
HPI - Abdominal Pain General: Chief Complaint: Abdominal Pain Stated Complaint: right abdomen pain Time Seen by Provider: 05/15/23 00:22 History of Present Illness: 47-year-old male presents emergency department with complaints of right upper quadrant abdominal pain that started about 9 PM this evening. He states the pain was a sharp constant pain. He denies nausea or vomiting. He states he does have a history of kidney stones and felt like this may be a another kidney stone although he states it feels much higher. He denies fevers chills or night sweats. He denies acid reflux chest pain or shortness of breath. Review of Systems General: Reports: 10 or more systems reviewed and unremarkable except in HPI and below GI: Reports: abdominal pain PFSH ED PFSH: Medical History Bladder diverticulum Calculus of distal right ureter No pertinent past medical history Social History Smoking and tobacco/nicotine status: never used tobacco/nicotine Alcohol intake: never Substance/Drug Use: never Physical Exam Narrative: EXAM NARRATIVE: Constitutional: the patient appears well nourished and of normal development. Vital signs as documented. No acute distress at present. Alert and oriented-to person, place, time and situation. Head, eyes, ears, nose, mouth, throat: Normocephalic, atraumatic. Pupils-equal, round, reactive to light. No scleral icterus. Normal-appearing external ears. Normal appearing nasal turbinates, no drainage. No obvious oral lesions, posterior oropharynx without erythema or exudates. Neck: Supple, trachea is midline, no lymphadenopathy, no jugular venous distension, thyromegaly, or carotid bruits. Carotid upstrokes are brisk bilaterally. Lungs: clear to auscultation to all lung connor. Symmetrical rise and fall of chest, no obvious signs of increased work of breathing at present. Cardiac: Regular rate and rhythm, positive S1, S2. No murmurs, rubs or gallops that I can appreciate Abdomen: Soft, right upper quadrant mildly-tender to palpation, normal active bowel sounds to all quadrants. No palpable masses, no organomegaly and abdominal bruits. Extremities: 2+ pulses in the upper extremities that are equal bilaterally, 2+ pulses in the lower extremities that are equal bilaterally. Non-edematous. Moves all extremities well, sensation to all extremities are noted. Skin: Warm, dry, intact. Course Vital Signs: Vital signs: Vital Signs Temperature 98 F 05/15/23 00:23 Pulse Rate 62 05/15/23 00:58 Respiratory Rate 16 05/15/23 00:58 Blood Pressure 169/100 05/15/23 00:58 Pulse Oximetry 96 05/15/23 00:58 MDM - Abdominal Pain Medical Decision Making Physical exam completed and documented, I will obtain laboratory evaluation to include a CBC, CMP, lipase, urinalysis, and a CT scan of the patient's abdomen pelvis to evaluate for possible differential diagnosis of bowel obstruction, incarcerated hernia, abdominal wall strain, abdominal wall hematoma, constipation, possible colitis, acute appendicitis, diverticulitis. Medical Records I reviewed the patient's medical records. Lab Data I reviewed the patient's lab results. 05/15/23 00:31 05/15/23 00:31 Labs/Radiology: Radiology Impressions Abdomen/Pelvis CT 05/15/23 00:34 IMPRESSION: 1. No bowel obstruction or inflammatory process associated with the bowel. 2. No free air or significant free fluid in the abdomen or pelvis. 3. The appendix images normally. 4. No hydronephrosis or renal calculus. No stone in the bladder. Gallbladder Ultrasound 05/15/23 01:34 IMPRESSION: 1. Diffuse hepatic steatosis. Correlate with laboratory findings of liver dysfunction. 2. Pancreas is not well visualized. Laboratory Results WBC 11.42 10^3/uL (3.29-11.43) 05/15/23 00:31 RBC 5.09 10^6/uL (3.85-5.65) 05/15/23 00:31 Hgb 14.40 g/dL (11.27-16.99) 05/15/23 00:31 Hct 43.8 % (37-53) 05/15/23 00:31 MCV 86.1 fl (82-101) 05/15/23 00:31 MCH 28.3 pg (27-33) 05/15/23 00: MCHC 32.9 g/dL (30-55) 05/15/23 00:31 RDW 13.4 % (12.1-15.1) 05/15/23 00:31 Plt Count 348 10^3/cmm (157-399) 05/15/23 00:31 MPV 9.5 fL (7.4-10.4) 05/15/23 00:31 Neut % (Auto) 63.7 % 05/15/23 00: Lymph % (Auto) 25.2 % 05/15/23 00: [place] % (Auto) 8.0 % 05/15/23 00: Eos % (Auto) 2.6 % 05/15/23 00: Baso % (Auto) 0.2 % 05/15/23 00: Neut # (Auto) 7.28 10^3/uL (1.8-7.7) 05/15/23 00: Lymph # (Auto) 2.9 10^3/uL (0.8-4.8) 05/15/23 00: [place] # (Auto) 0.9 10^3/uL (0.2-0.9) 05/15/23 00: Eos # (Auto) 0.3 10^3/uL (0.0-0.8) 05/15/23 00: Baso # (Auto) 0.0 10^3/uL (0.0-0.1) 05/15/23 00: Nucleated RBC % (auto) 0 % 05/15/23 00: Nucleated RBCs # 0.0 /100WBC 05/15/23 00:31 Sodium 142 mmol/L (136-145) 05/15/23 00: Potassium 4.1 mmol/L (3.5-5.1) 05/15/23 00: Chloride 106 mmol/L (98-107) 05/15/23 00: Carbon Dioxide 27 mmol/L (22-29) 05/15/23 00: Anion Gap 13.1 (5-19) 05/15/23 00: BUN 16 mg/dL (6-20) 05/15/23 00: Creatinine 1.1 mg/dL (0.7-1.2) 05/15/23 00: GFR Calculation 72.1 mL/min (90-130) L 05/15/23 00: Glucose 124 mg/dL (65-115) H 05/15/23 00:31 Calculated Osmolality 297 mOsm/kg (285-295) H 05/15/23 00:31 Calcium 8.6 mg/dL (8.5-10.5) 05/15/23 00:31 Total Bilirubin 0.3 mg/dL (0.15-1.2) 05/15/23 00:31 AST 19 U/L (0-40) 05/15/23 00:31 ALT 35 U/L (0-41) 05/15/23 00:31 Alkaline Phosphatase 77 U/L (40-130) 05/15/23 00:31 Total Protein 6.7 g/dL (6.6-8.7) 05/15/23 00:31 Albumin 4.0 g/dL (3.5-5.2) 05/15/23 00:31 Globulin 2.7 g/dL (1.3-4.6) 05/15/23 00:31 Lipase 48 U/L (13-60) 05/15/23 00:31 Urine Color Yellow (Yellow) 05/15/23 03:26 Urine Appearance Clear (CLEAR) 05/15/23 03:26 Urine pH 6 (5-7) 05/15/23 03:26 Ur Specific [place] 1.015 (1.005-1.030) 05/15/23 03:26 Urine Protein Neg (Negative) 05/15/23 03:26 Urine Glucose (UA) Norm (Normal) 05/15/23 03:26 Urine Ketones Negative (Negative) 05/15/23 03:26 Urine Blood Neg (Negative) 05/15/23 03:26 Urine Nitrate Negative (Negative) 05/15/23 03:26 Urine Bilirubin Neg (Negative) 05/15/23 03:26 Urine Urobilinogen Norm mg/dL (Negative) 05/15/23 03:26 Ur Leukocyte Esterase Negative (Negative) 05/15/23 03:26 All radiology interpretation(s) finalized by discharge Discharge Plan Discharge Patient Disposition: Home Clinical Impression: Abdominal pain Condition: Stable Prescriptions: No Action Percocet 5-325 mg tablet 1 tab PO Q8H PRN (Reason: pain) Qty: 5 0RF Discharge Orders: Discharge ED (Routine); Ordered 05/15/23 Ordered By: Abdi Aguayo Referrals: Claudy Ruff [Primary Care Provider] - Discharge Diet: Usual diet Discharge Activity: Resume usual activity Patient Instructions: Abdominal Pain (ED), Opioid Safety, Pain Management Activity Restrictions/Additional Instructions: Activity Restrictions/Additional Instructions: Thank you for choosing [facility] for your healthcare needs today. Please realize that you were seen in the Emergency Department and that we are providing you with an emergency medical screening exam and this may not be a complete and all inclusive of all the testing and or medical work-up that you may need to determine your ailment or severity of your illness. It is very important that you follow-up as instructed with your Primary care provider or Specialist for additional evaluation and to discuss your medical treatment plan. You may return to the Emergency Department should you have concerns or if your condition changes or worsens in any way. Coding Level of Care Code ED Color Room Attendant for Wisam Howe
[2023-05-15 03:31] LABS: Add Urine Microscopic? NO; Charge for UA Resulting for Rev
[2023-05-15 03:45] LABS: Bilirubin Urine Neg (Negative); Blood Urine Neg (Negative); Glucose Urine UA Norm (Normal); Ketones Urine Negative (Negative); Leukocyte Esterase Urine Negative (Negative); Nitrate Urine Negative (Negative); Protein Urine Neg (Negative); Specific Gravity, Urine 1.015 (1.005-1.030); Urine Appearance Clear (CLEAR); Urine Color Yellow (Yellow); Urobilinogen Urine Norm (Negative); pH Urine 6 (5-7)
== END 2023-05-15 03:38 | disposition home or self-care (01) ==
PROVIDERS: Emergency Provider Internal Medicine; PCP Family Medicine
DX: R10.11 Right upper quadrant pain (principal)
CPT/HCPCS: 74176; 76705; 80053; 81003; 83690; 85025; 96361; 96374; 96375; 99285; J1885; J2405; J7030

== ENCOUNTER → 2023-05-27 11:29 | Outpatient (BNVA) | payer OTHER, SELFPAY | PROVIDERS: PCP Registered Nurse; Visit Provider Registered Nurse | DX: I10 Essential (primary) hypertension (principal); R73.9 Hyperglycemia, unspecified; E55.9 Vitamin D deficiency, unspecified; K21.9 Gastro-esophageal reflux disease without esophagitis | CPT/HCPCS: 82306; 82607; 83036; 84403; 86008 ==

== ENCOUNTER 2024-10-03 09:11 | Day surgery (SDC) | payer OTHER, SELFPAY ==
[2024-10-03 09:21] VITALS: BP 146/99; PULSE 67; RESP 18; TEMP 36.4; O2SAT 99; BMI 42.8
--- NOTE | 2024-10-03 10:22 | ANES.PREANE2 ---
Pre-Anesthetic Assessment Height/Weight: Height 1.75 m Weight 131.542 kg Temp Pulse Resp BP Pulse Ox O2 Del Method 97.5 F L 67 18 146/99 99 Room Air 10/03/24 09:21 10/03/24 09:21 10/03/24 09:21 10/03/24 09:21 10/03/24 09:21 10/03/24 09:21 Preop Diagnosis: screen Operation Date: 10/03/24 10:30 Proposed Procedures p Colonoscopy 66883, G0121, Z12.11(Not Applicable) - Shayan Burton MD Last intake: Intake Last Liquid Date 10/02/24 Last Liquid Time 22:30 Last Solid Date 10/02/24 Last Solid Time 08:00 Social No alcohol and No tobacco Exam alert, oriented x 3, clear to auscultation bilaterally and regular rate & rhythm Airway Submandibular: within normal limits Cervical ROM: within normal limits Mallampati: Class I Comments: Comments: intact Pulmonary None reported CV/HEM None reported None reported Hepatic None reported GI None reported Metabolic Morbid Obesity [facility] [place] [facility] [place] None reported Neuropsych None reported Anesthetic Plan ASA status: 2 Anesthesia: MAC Risk of > 500 ml blood loss (7ml/kg in children): No Medications/Allergies Home Medications ?Medication ?Instructions ?Recorded ?Confirmed ?Last Taken ?Type buspirone 5 mg tablet See Rx Instructions .Route 07/03/24 10/03/24 10/02/24 Rx .COMPLEX #270 tabs lisinopril 30 mg tablet 30 mg PO DAILY 90 days #90 tabs 08/31/24 10/03/24 10/02/24 Rx omeprazole 20 mg capsule,delayed 20 mg PO DAILY 09/27/24 10/03/24 10/02/24 History release amlodipine 10 mg tablet 5 mg PO DAILY 10/02/24 10/03/24 10/02/24 History Allergies Allergy/AdvReac Type Severity Reaction Status Date / Time No Known Allergies Allergy Verified 09/27/24 08:17 Current Medications Generic Name Dose Route Start Last Admin Trade Name Freq PRN Reason Stop Dose Admin Sodium Chloride 1,000 mls @ 15 mls/hr 10/03/24 09:12 10/03/24 09:35 Sodium Chloride 0.9% IV 10/04/24 09:11 15 mls/hr .Q24H PRN Administration COLONOSCOPY FLUIDS PFSH Anesthesia Medical History Bladder diverticulum Calculus of distal right ureter No pertinent past medical history Surgical History History of ear, nose, and throat (ENT) surgery History of adenectomy History of palate surgery Family History Grandfather Cancer maternal Denies family history of Diabetes Congestive heart failure (CHF) Lung disease Hypertension Stroke Social History Smoking and tobacco/nicotine status: never used tobacco/nicotine Quit status (tobacco/nicotine): has quit using Year quit tobacco: 2023 Former quit date comment: chew Alcohol intake: never Substance/Drug Use: never Adopted: No Caregiver/support person: No Lives independently: No Household members: family service: Yes status: Discharged branch: [employer] Assignments: Outside [employer] ([employer] Known or Potential Exposure: Post Traumatic Stress Disorder (PTSD) Current occupational status: employed Sexually active: Yes Do you think of yourself as: Straight/Heterosexual Current gender identity: Male
--- NOTE | 2024-10-03 10:46 | W.PM.OPSUD ---
Surgery/Procedure H&P Update DATE OF PROCEDURE: October 03, 2024 DATE H&P PERFORMED: 09/08/24 H&P UPDATE INFORMATION: I have reviewed H&P completed within last 30 days, I have examined patient prior to procedure and No changes to prior documentation PREOP DIAGNOSIS: screen PLANNED PROCEDURE: Operation Date: 10/03/24 10:30 Proposed Procedures p Colonoscopy 58877, G0121, Z12.11(Not Applicable) - Shayan Burton MD
--- NOTE | 2024-10-03 10:54 | PC.NURSE ---
Cecum time 1053
[2024-10-03 11:11] VITALS: BP 95/65; PULSE 81; RESP 18; TEMP 36.4; O2SAT 93
[2024-10-03 11:26] VITALS: BP 100/70; PULSE 60; RESP 18; O2SAT 94
--- NOTE | 2024-10-03 11:40 | ANE.PACU2 ---
Inpatient post-anesthesia follow up: Airway intact: Yes Vital signs: Temperature 97.6 F Pulse Rate 60 Respiratory Rate 18 Blood Pressure 100/70 Pulse Oximetry 94 Oxygen Delivery Me thod Room Air Oxygen Flow Rate 2 Fraction of Inspir ed Oxygen Hydration adequate: Yes Nausea and vomiting: No Pain level: 1 Mental status: Baseline
== END 2024-10-03 11:40 | disposition home or self-care (01) ==
PROVIDERS: PCP Registered Nurse; Visit Provider Student in an Organized Health Care Education/Training Program
PROC: 0DJD8ZZ Inspection of Lower Intestinal Tract, Via Natural or Artificial Opening Endoscopic (ICD-10-PCS; CPT 45378; principal; 2024-10-03 10:30)
DX: Z12.11 Encounter for screening for malignant neoplasm of colon (principal); K62.1 Rectal polyp; E66.01 Morbid (severe) obesity due to excess calories; Z79.899 Other long term (current) drug therapy; Z87.891 Personal history of nicotine dependence; Z68.41 Body mass index [BMI] 40.0-44.9, adult
CPT/HCPCS: 45380; 88305; J2704; J7030